=== PATIENT | male | born 1960 | race Caucasian/White ===

== ENCOUNTER 2017-05-02 11:22 | Emergency (ER) | payer OTHER ==
[~2017-05-02] VITALS: Ht 180.3 cm; Wt 77.1 kg
[2017-05-02] MEDS ORDERED: IBUPROFEN 600600 M1 PO (14:50)
[2017-05-02] MEDS ORDERED: KEFLEX500 MG PO (14:50)
[2017-05-02] MEDS ORDERED: NORCO 5-325 TA1 EACH PO (14:50)
[2017-05-02 15:09] VITALS: BP 120/72
== END 2017-05-02 15:08 | disposition home or self-care (01) ==
LOC: ER 11:22
DX: S61.213A Laceration without foreign body of left middle finger without damage to nail, initial encounter (principal); S61.215A Laceration without foreign body of left ring finger without damage to nail, initial encounter; F10.99 Alcohol use, unspecified with unspecified alcohol-induced disorder; W28.XXXA Contact with powered lawn mower, initial encounter; Y93.89 Activity, other specified; Y92.89 Other specified places as the place of occurrence of the external cause; Y99.8 Other external cause status